=== PATIENT | female | born 1960 | race Caucasian/White ===

== ENCOUNTER 2024-01-11 17:52 | Emergency (ER) | payer OTHER, SELFPAY ==
[2024-01-11] VITALS (7 sets, daily range): BP systolic 120–145; BP diastolic 61–82; PULSE 69–79; RESP 15–18; TEMP 36.6; O2SAT 93–100; BMI 27.4
--- NOTE | 2024-01-11 18:18 | EKG_ITS ---
[address] [address] Test Date: 2024-01-11 Pat Name: Emmy Cortes Department: [facility] Room: Gender: Female [employer] As[employer]er: [facility] : 1960 Requested By: Order Number: [id number] Reading MD: Tobias Edmonds MD Measurements Intervals [place] Rate: 74 P: 48 SD: 122 QRS: 52 QRSD: 76 T: 32 QT: 390 QTc: 432 Interpretive Statements Normal sinus rhythm Electronically Signed On 01-12-2024 8:53:55 PDT by Tobias Edmonds MD
[2024-01-11 18:31] LABS: Add Manual Diff / Slide Review NO; Basophils Absolute Auto 100 /uL (0-100); Eosinophils Absolute Auto 200 /uL (0-450); Eosinophils Percent Auto 1.3 % (2-4); Hemoglobin 13.9 g/dL (12.0-16.0); Lymphocytes Absolute Auto 2500 /uL (1100-4500); Lymphocytes Percent Auto 18.8 % (25-40); Mean Corpuscular HGB Conc 33.1 % (30-36); Mean Corpuscular Hemoglobin 29.6 PG (26-34); Mean Corpuscular Volume 89.5 fL (80-100); Monocytes Absolute Auto 1200 /uL (0-900); Monocytes Percent Auto 9.4 % (3-14); Neutrophils Absolute Auto 9100 /uL (1500-7000); Neutrophils Percent Auto 69.5 % (50-75); Platelet Count 372 X10^3/uL (150-400); Red Blood Cell Count 4.69 X10^6/uL (4.0-5.2); Red Cell Distribution Width 14.9 % (11.6-14.8)
[2024-01-11 18:38] LABS: Alanine Aminotransferase 24 IU/L (<35); Albumin 4.8 g/dL (3.5-5.0); Albumin Globulin Ratio 1.5 (1.0-2.8); Alkaline Phosphatase 85 U/L (38-126); Aspartate Aminotransferase 32 IU/L (14-36); BUN Creatinine Ratio 19.3 (6-22); Bilirubin Total 0.8 mg/dL (0.2-1.3); Blood Urea Nitrogen 17 mg/dL (7-17); Carbon Dioxide 27 mmol/L (22-32); Chloride 104 mmol/L (98-107); Estimated Glomerular Filt Rate > 60 mL/min (>60); Globulin 3.2 g/dL (1.7-4.1); Glucose 89 mg/dL (80-110); HEMOLYSIS < 15 (0-50); Lipase 102 U/L (23-300); Sodium 137 mmol/L (137-145)
[2024-01-11] MEDS: KETOROLAC 30 MG/ML VIAL 15 MG IV (20:44)
--- NOTE | 2024-01-11 21:03 | ED.ABDPAIN ---
HPI - Abdominal Pain General Chief Complaint: Abdominal Pain Stated Complaint: lower abd pain Time Seen by Provider: 01/11/24 20:40 Source: patient, family, RN notes reviewed and old records reviewed Mode of arrival: Ambulatory Limitations: no limitations History of Present Illness HPI narrative: 63-year-old female history of GERD and prior hysterectomy in 2018 who presents with complaint of lower abdominal/pelvic pain started in the last 12 hours. Patient states she went to sleep last night without any issues woke up this morning describing sort of suprapubic discomfort little bit into bilateral back as the day has progressed. No fevers, no nausea or vomiting no chest pain or shortness of breath. No syncope. No issues with bowel movements. No black or bloody stool no diarrhea constipation. No dysuria urgency or frequency. No vaginal bleeding or discharge. Patient states only medications are pantoprazole and daily vitamins. States she had a hysterectomy in 2018. Is allergic to Bactrim. No tobacco, occasional alcohol, no recreational drugs. She is accompanied by her . Related Data Home Medications Medication Instructions Recorded Confirmed [AIRBORNE] ##0 01/30/13 ibuprofen 200 mg tablet (Advil) 200 mg PO PRN ##0 01/30/13 Previous Rx's Medication Instructions Recorded amoxicillin 875 mg-potassium 1 tab PO BID #20 tabs 01/11/24 clavulanate 125 mg tablet Allergies Allergy/AdvReac Type Severity Reaction Status Date / Time sulfamethoxazole Allergy Verified 01/11/24 18:06 [From Bactrim] trimethoprim [From Bactrim] Allergy Verified 01/11/24 18:06 Review of Systems Review of Systems ROS Unobtainable: All systems reviewed & are unremarkable except as noted in HPI and below Patient History Social History Smoking Status: Unknown if ever smoked Smoking Status: Unknown if ever smoked alcohol intake frequency: holidays/special occasions only Substance Use Type: does not use Exam Narrative Exam Narrative: GENERAL: Alert and oriented x three, female in mild distress HEENT: Head normocephalic, atraumatic, EOMI, pupils reactive, face symmetric, moist mucous membranes NECK: Supple, full range of motion CARDIOVASCULAR: Regular rate and rhythm without murmurs, rubs or gallops. RESPIRATORY: Breath sounds equal bilaterally, no wheezes rales or rhonchi. ABDOMEN: Soft, generalized lower abdominal tenderness, left slightly greater than right Normoactive bowel sounds all 4 quadrants. No guarding or rebound, rigidity, no mass : Mild right CVA tenderness, no left CVA tenderness. EXTREMITIES: Normal range of motion, no clubbing or edema. Neurovascularly intact NEUROLOGICAL: Cranial nerves II through XII grossly intact. Moving all extremities SKIN: Warm, dry, no petechiae, no rashes or lesions. Initial Vital Signs Initial Vital Signs: Vital Signs Temperature 97.9 F 01/11/24 18:06 Pulse Rate 79 01/11/24 18:06 Respiratory Rate 15 01/11/24 18:06 Blood Pressure 131/82 01/11/24 18:06 Pulse Oximetry 100 01/11/24 18:06 Oxygen Delivery Method Room Air 01/11/24 18:06 Course Orders Ordered: ED Orders 01/11/24 21:08 CT abdomen pelvis w con Stat Discontinued Medications Hydrocodone Bitart/Acetaminophen (Hydrocodone/Acet 5/325 Prepack) 1 bottle MISC DIRECTED ONE Stop: 01/11/24 22:27 Last Admin: 01/11/24 22:30 Dose: 1 bottle Documented By: JUDIE Amoxicillin/Clavulanate Potassium (Amoxicillin/Clav 875/125 Mg) 1 tab PO NOW ONE Stop: 01/11/24 22:27 Last Admin: 01/11/24 22:30 Dose: 1 tab Documented By: JUDIE Ketorolac Tromethamine (Ketorolac 30 Mg/Ml Vial) 15 mg IV NOW ONE Stop: 01/11/24 20:41 Last Admin: 01/11/24 20:44 Dose: 15 mg Documented By: KAREN Vital Signs Vital signs: Vital Signs - 8 hr 01/11/24 21:30 01/11/24 22:00 01/11/24 22:30 Pulse Rate 73 70 72 Respiratory Rate 18 18 Blood Pressure Pulse Oximetry 93 97 97 Oxygen Delivery Method Room Air 01/11/24 22:30 Pulse Rate Respiratory Rate Blood Pressure 130/65 Pulse Oximetry Oxygen Delivery Method MDM - Abdominal Pain Lab Data 01/11/24 18:15 01/11/24 18:15 Labs: Lab Results 01/11/24 Range/Units 18:15 WBC 13.0 H (4.5-11.0) X10^3/uL RBC 4.69 (4.0-5.2) X10^6/uL Hgb 13.9 (12.0-16.0) g/dL Hct 42.0 (36-46) % MCV 89.5 (80-100) fL MCH 29.6 (26-34) PG MCHC 33.1 (30-36) % RDW 14.9 H (11.6-14.8) % Plt Count 372 (150-400) X10^3/uL Neut % (Auto) 69.5 (50-75) % Lymph % (Auto) 18.8 L (25-40) % Scott % (Auto) 9.4 (3-14) % Eos % (Auto) 1.3 L (2-4) % Baso % (Auto) 1.0 (0-2) % Neut # (Auto) 9100 H (3630-8598) /uL Lymph # (Auto) 2500 (4025-5365) /uL Scott # (Auto) 1200 H (0-900) /uL Eos # (Auto) 200 (0-450) /uL Baso # (Auto) 100 (0-100) /uL Sodium 137 (137-145) mmol/L Potassium 4.0 (3.4-5.1) mmol/L Chloride 104 (98-107) mmol/L Carbon Dioxide 27 (22-32) mmol/L BUN 17 (7-17) mg/dL Creatinine 0.88 (0.52-1.04) mg/dL Estimated GFR > 60 (>60) mL/min BUN/Creatinine Ratio 19.3 (6-22) Glucose 89 (80-110) mg/dL Calcium 9.0 (8.4-10.2) mg/dL Total Bilirubin 0.8 (0.2-1.3) mg/dL AST 32 (14-36) IU/L ALT 24 (<35) IU/L Alkaline Phosphatase 85 (38-126) U/L Total Protein 8.0 (6.3-8.2) g/dL Albumin 4.8 (3.5-5.0) g/dL Globulin 3.2 (1.7-4.1) g/dL Albumin/Globulin Ratio 1.5 (1.0-2.8) Lipase 102 (23-300) U/L Point of care testing: Urine Dip Bedside Urine Glucose Negative Bedside Urine Bilirubin - Negative Bedside Urine Ketone +/- 5 Urine Specific Jackson 1.015 Bedside Urine Occult Blood - Negative Bedside Urine pH 6 Bedside Urine Protein - Negative Bedside Urine Urobilinogen - Negative Bedside Urine Nitrite - Negative Bedside Urine Leukocytes - Negative Esterase Imaging Data CT scan - abdomen/pelvis: Radiologist's Impression: Emmy Cortes??63??F??1960 ? Allergy/Adv: sulfamethoxazole, trimethoprim (More??) Close Abdomen/Pelvis CT (Signed) Porsche Malloy - 01/11/24 Launch?[address] [address] [address] Scan Report Signed Patient: Emmy Cortes MR#: [id number] : 1960 Acct:[id number] Age/Sex: 63 / F Date of Service: 01/11/24 Loc: ED Accession Number: [id number] Procedure: CT abdomen pelvis w con Ordering Provider: Lea Gramajo D.O. PROCEDURE: CT ABDOMEN PELVIS W CON INDICATIONS: lower pelvic pain L>R, mild r flank, hx hysterctomy TECHNIQUE: After the administration of intravenous contrast, axial sections acquired from the lung bases to the pubic symphysis. Coronal and sagittal reformats were performed. For radiation dose reduction, the following was used: automated exposure control, adjustment of mA and/or kV according to patient size. COMPARISON: None. FINDINGS: Image quality: Diagnostic. Lower Chest: No significant findings. ABDOMEN: Liver: No solid mass. Gallbladder: No radiopaque gallstones or wall thickening. Biliary ducts: No biliary dilation. Pancreas: No ductal dilation. Spleen: Size is within normal limits. Adrenal Glands: No adrenal nodules. Kidneys and Ureters: No hydronephrosis. No solid mass. No complex renal cystic lesion which requires follow up. Stomach and Bowel: No small bowel obstruction. Acute diverticulitis adjacent to sigmoid colon diverticulum in the lower pelvis. No free air. No abscess. Peritoneum: No abnormal intraperitoneal fluid. No free air. Ventral Wall: No significant ventral hernia. Abdominal Nodes: No retroperitoneal or mesenteric adenopathy by size criteria. Vessels: Aorta and inferior vena cava are normal in size. PELVIS: Pelvic Organs: Status post hysterectomy. Bladder: No bladder wall thickening, accounting for underdistention. Pelvic Nodes: No enlarged lymph nodes. Miscellaneous: No inguinal hernias are seen. Bones: No aggressive osseous abnormality. Multilevel degenerative changes, worse at L5-S1. No acute vertebral body compression fracture. IMPRESSION: Acute uncomplicated sigmoid colon diverticulitis. Approved by: Porsche Malloy M.D.,Ph.D. on 01/11/2024 at 22:05 ECG Data Attestation: I personally reviewed and interpreted this ECG as follows: Prior ECG tracings: not available for review Interpretation: Sinus rhythm rate of 74 OK 122 QRS is 76 QTC 432, no acute ST changes. MDM Narrative Medical decision making narrative: 63-year-old female with prior history hysterectomy who comes in with complaint of suprapubic pain but also little flank pain on examination. Patient has mildly more tender on the left but hurts both sides and suprapubically. She is some mild right CVA tenderness. CBC shows a white count with the 13, low neutrophils, normal hemoglobin normal platelets. Electrolytes, renal function LFTs are all normal. Point of care urine is negative. EKG shows no acute change. Patient received Toradol. She states pain has improved. CT shows acute uncomplicated sigmoid diverticulitis. Multi degenerative changes worse at L5-S1. Reviewed findings from labs and imaging with patient and family. Patient is started on oral antibiotics with prescription sent. We will give a short course of narcotic pain medication. Discussed return precautions all questions answered. Discharge Plan Departure Patient Disposition: Home Clinical Impression: Diverticulitis Instructions: DI for Diverticulitis Activity Restrictions/Additional Instructions: Follow up for recheck if your symptoms are not starting to significantly improve in the next several days. Your imaging shows sigmoid diverticulitis please take antibiotics until completed. Prescription sent to [facility] You can take Tylenol up to a 1000 mg every 6 hours as needed and/or ibuprofen up to 600 mg every 6 hours as needed for pain. If in adequate you can take [place] 1-2 tablets every 6 hours as needed for pain instead of Tylenol. This medication can make you sleepy do not drive, perform hazardous activities or make any major decisions while taking it. This medication will make you constipated please take a stool softener once to twice daily until stools are soft and regular. Please return for fevers, rapidly worsening pain, persistent vomiting, new black or bloody stools, lightheadedness or passing out or other new or concerning changes. Prescriptions: New amoxicillin-pot clavulanate 875-125 mg tablet 1 tab PO BID Qty: 20 0RF No Action ibuprofen [Advil] 200 MG tablet 200 mg PO PRN Qty: 0 [AIRBORNE] Qty: 0 Stand Alone Forms: Patient Portal/API
--- NOTE | 2024-01-11 21:08 | DI.CT.S_ITS ---
PROCEDURE: CT ABDOMEN PELVIS W CON INDICATIONS: lower pelvic pain L>R, mild r flank, hx hysterctomy TECHNIQUE: After the administration of intravenous contrast, axial sections acquired from the lung bases to the pubic symphysis. Coronal and sagittal reformats were performed. For radiation dose reduction, the following was used: automated exposure control, adjustment of mA and/or kV according to patient size. COMPARISON: None. FINDINGS: Image quality: Diagnostic. Lower Chest: No significant findings. ABDOMEN: Liver: No solid mass. Gallbladder: No radiopaque gallstones or wall thickening. Biliary ducts: No biliary dilation. Pancreas: No ductal dilation. Spleen: Size is within normal limits. Adrenal Glands: No adrenal nodules. Kidneys and Ureters: No hydronephrosis. No solid mass. No complex renal cystic lesion which requires follow up. Stomach and Bowel: No small bowel obstruction. Acute diverticulitis adjacent to sigmoid colon diverticulum in the lower pelvis. No free air. No abscess. Peritoneum: No abnormal intraperitoneal fluid. No free air. Ventral Wall: No significant ventral hernia. Abdominal Nodes: No retroperitoneal or mesenteric adenopathy by size criteria. Vessels: Aorta and inferior vena cava are normal in size. PELVIS: Pelvic Organs: Status post hysterectomy. Bladder: No bladder wall thickening, accounting for underdistention. Pelvic Nodes: No enlarged lymph nodes. Miscellaneous: No inguinal hernias are seen. Bones: No aggressive osseous abnormality. Multilevel degenerative changes, worse at L5-S1. No acute vertebral body compression fracture. IMPRESSION: Acute uncomplicated sigmoid colon diverticulitis. Approved by: Porsche Malloy M.D.,Ph.D. on 01/11/2024 at 22:05
[2024-01-11] MEDS: HYDROCODONE/ACET 5/325 PREPACK 1 BOTTLE MISC (22:30)
[2024-01-11] MEDS: AMOXICILLIN/CLAV 875/125 MG 1 TAB PO (22:30)
== END 2024-01-11 22:40 | disposition home or self-care (01) ==
PROVIDERS: Emergency Medicine; Emergency Provider Emergency Medicine
DX: K57.92 Diverticulitis of intestine, part unspecified, without perforation or abscess without bleeding (principal)
CPT/HCPCS: 36415; 74177; 80053; 81003; 83690; 85025; 93005; 99284; J1885; Q9967

== ENCOUNTER 2024-03-09 17:51 | Emergency (ER) | payer OTHER, SELFPAY ==
[2024-03-09] VITALS (8 sets, daily range): BP systolic 113–136; BP diastolic 72–80; PULSE 59–77; RESP 16–18; TEMP 36.6; O2SAT 94–99; BMI 26.6
--- NOTE | 2024-03-09 18:21 | DI.RAD.S_ITS ---
PROCEDURE: XR WRIST LT MIN 3V INDICATIONS: fall, L wrist pain TECHNIQUE: 3 views of the wrist were acquired. COMPARISON: None. FINDINGS: Bones: No fractures or dislocations. No suspicious bony lesions. Soft tissues: No suspicious soft tissue calcifications. IMPRESSION: No acute bony abnormality. Approved by: Porsche Malloy M.D.,Ph.D. on 03/09/2024 at 20:40
[2024-03-09] MEDS: IBUPROFEN 400 MG TABLET 800 MG PO (18:24)
--- NOTE | 2024-03-09 21:47 | ED.FALL ---
HPI - Fall General Chief Complaint: Fall Stated Complaint: Fall, lft hand injury Time Seen by Provider: 03/09/24 21:47 History of Present Illness HPI Narrative: Patient is a 63-year-old healthy female who presents today with left wrist and hand pain. She fell approximately 24 hours ago minutes had significant pain and swelling since. She says she was walking the dog she had a lesion in the right hand tripped and fell. She may have hit her head but did not lose consciousness. She has no nausea vomiting or neck pain. She has not having any shoulder pain. Significant hand pain and swelling. She has been given ibuprofen prior to my evaluation along with an ice pack and sling. Related Data Home Medications Medication Instructions Recorded Confirmed [AIRBORNE] ##0 01/30/13 ibuprofen 200 mg tablet (Advil) 200 mg PO PRN ##0 01/30/13 Previous Rx's Medication Instructions Recorded amoxicillin 875 mg-potassium 1 tab PO BID #20 tabs 01/11/24 clavulanate 125 mg tablet oxycodone-acetaminophen 5 mg-325 1 tab PO Q6H PRN pain #10 tabs 03/09/24 mg tablet (Percocet) Allergies Allergy/AdvReac Type Severity Reaction Status Date / Time sulfamethoxazole Allergy Verified 01/11/24 18:06 [From Bactrim] trimethoprim [From Bactrim] Allergy Verified 01/11/24 18:06 Patient History Social History Smoking Status: Unknown if ever smoked Smoking Status: Unknown if ever smoked alcohol intake frequency: holidays/special occasions only Substance Use Type: does not use Exam Initial Vital Signs Initial Vital Signs: Vital Signs Temperature 97.8 F 03/09/24 18:16 Pulse Rate 77 03/09/24 18:16 Respiratory Rate 16 03/09/24 18:16 Blood Pressure 126/78 03/09/24 18:16 Pulse Oximetry 97 03/09/24 18:16 Oxygen Delivery Method Room Air 03/09/24 18:16 GENERAL: Alert 63-year-old female CARDIOVASCULAR: peripheral pulses in tact, cap refill <2 sec RESPIRATORY: No respiratory distress, speaks in full sentences without difficulty EXTREMITIES: Normal range of motion, no clubbing or edema. Neurovascularly intact. Significant swelling of left wrist distal radial pulse intact able to move fingers neurovascularly intact NEUROLOGICAL: Cranial nerves II through XII grossly intact. Normal gait and speech. SKIN: Warm, dry, no petechiae, no rashes or lesions. Procedures Orthopedic Splinting/Casting Injury #1: Side: left Upper Extremity Injury Location: wrist and hand Upper Extremity Immobilizer: sling/shoulder immobilizer and ulnar gutter Post splinting neuro exam: intact Post splinting vascular exam: intact Placed by: Nursing Course Orders Ordered: ED Orders 03/09/24 18:21 XR wrist LT min 3V Stat 03/09/24 21:52 XR hand LT min 3V Stat Discontinued Medications Ibuprofen (Ibuprofen 400 Mg Tablet) 800 mg PO NOW ONE Stop: 03/09/24 18:22 Last Admin: 03/09/24 18:24 Dose: 800 mg Documented By: YAYO Oxycodone/Acetaminophen (Oxycodone/Acetaminophen 5/325 Tablet) 1 tab PO NOW ONE Stop: 03/09/24 21:53 Last Admin: 03/09/24 21:58 Dose: 1 tab Documented By: TAMI Oxycodone/Acetaminophen (Oxycodone/Apap 5/325 Prepack) 1 bottle MISC DIRECTED ONE Stop: 03/09/24 23:01 Last Admin: 03/09/24 23:07 Dose: 1 bottle Documented By: TAMI Vital Signs Vital signs: Vital Signs - 8 hr 03/09/24 20:59 03/09/24 20:59 03/09/24 21:00 Pulse Rate 59 L Respiratory Rate Blood Pressure 131/74 136/72 Pulse Oximetry 98 03/09/24 21:00 03/09/24 21:30 03/09/24 21:30 Pulse Rate 63 67 Respiratory Rate 18 Blood Pressure 128/79 Pulse Oximetry 98 94 03/09/24 21:58 03/09/24 22:00 03/09/24 22:04 Pulse Rate 59 L 59 L Respiratory Rate Blood Pressure 133/80 Pulse Oximetry 99 98 03/09/24 22:30 03/09/24 22:30 Pulse Rate 66 Respiratory Rate 18 Blood Pressure 113/72 Pulse Oximetry 97 MDM - Fall Imaging Data Extremity x-ray #1: Radiologist's Impression: PROCEDURE: XR WRIST LT MIN 3V INDICATIONS: fall, L wrist pain TECHNIQUE: 3 views of the wrist were acquired. COMPARISON: None. FINDINGS: Bones: No fractures or dislocations. No suspicious bony lesions. Soft tissues: No suspicious soft tissue calcifications. IMPRESSION: No acute bony abnormality. Approved by: Porsche Malloy M.D.,Ph.D. on 03/09/2024 at 20:40 Extremity x-ray #2: Radiologist's Impression: PROCEDURE: XR HAND LT MIN 3V INDICATIONS: pain swelling TECHNIQUE: Three views of the hand(s) acquired. COMPARISON: None. FINDINGS: Bones: No visible fractures or dislocations. There is subtle irregularity along the medial aspect of the 4th metacarpal head without discrete cortical break seen. Prominent juxta-articular spurring at the 1st IP joint and to lesser extent other DIP joints. Carpal bones are normally aligned. No suspicious bony lesions. Soft tissues: No suspicious soft tissue calcifications. No soft tissue gas or radiodense foreign bodies. IMPRESSION: Questionable irregularity at the 4th metacarpal head may be a nondisplaced fracture and correlation with point tenderness is recommended. No other fractures are identified. There is a background of mild osteoarthritic change. Dictated by: Stephanie Alexandra M.D. on 03/09/2024 at 22:26 MDM Narrative Medical decision making narrative: Patient is 63-year-old female who presents today with left wrist and hand pain after fall yesterday. She does look quite a bit of swelling but neurovascularly she is intact. X-ray of the wrist does not feel and fracture however she is extremely tender over the hand. Hand x-ray does show questionable 4th metacarpal Fracture. Patient is splinted in an ulnar gutter instructed to elevate ice as often as possible. She was given Percocet here for further pain control. Along with a sling. Discharge Plan Departure Patient Disposition: Home Clinical Impression: Closed fracture of 4th metacarpal Qualifiers: Encounter type: initial encounter Metacarpal location: other portion of metacarpal Laterality: left Instructions: Boxer's Fracture Activity Restrictions/Additional Instructions: *You have been diagnosed with 4th metacarpal fracture *What to do: At this time keep arm in splint at all times. If you need to bathe please cover it with Plastic. Elevate and ice as often as possible. *Continue to take medications as directed Percocet 1-2 tablets every 6 hours if needed for severe pain Motrin 600 mg every 6 hours if needed for [id number]-qpeuyxad pain *Follow up with your primary care provider in 2-3 days or call [phone] Please call orthopedics [facility] tomorrow to schedule follow-up appoint *Return to ER if you should have increasing pain numbness tingling weakness or any new, worsening or concerning symptoms CONTROLLED SUBSTANCE DISCHARGE (Narcotoic/benzodiazepine/Flexeril/Phenergan) 1. You have been prescribed narcotic medications, it does have acetaminophen/Tylenol/paracetamol in it, DO NOT TAKE MORE THAN 4,00mg in 24 hours of Tylenol. TRAMADOL DOES NOT CONTAIN TYLENOL 2. Please understand that we cannot provide further refills of narcotics, benzodiazepines or controlled substances through the ED and her pain management will need to be through your provider. 3. While on these medications you cannot drive or operate heavy machinery. 4. You cannot sign legal documents or perform any duties such as this. 5. As long as you're taking opiate pain medications he should also be taking a stool softener such as Colace, Dulcolax, MiraLAX or prune juice, to help avoid constipation. Prescriptions: New oxycodone-acetaminophen [Percocet] 5-325 mg tablet 1 tab PO Q6H PRN (Reason: pain) Qty: 10 0RF No Action ibuprofen [Advil] 200 MG tablet 200 mg PO PRN Qty: 0 [AIRBORNE] Qty: 0 amoxicillin-pot clavulanate 875-125 mg tablet 1 tab PO BID Qty: 20 0RF Referrals: [facility] [Provider Group] Miscellaneous,MD Georges [Primary Care Provider] - Stand Alone Forms: Patient Portal/API
--- NOTE | 2024-03-09 21:52 | DI.RAD.S_ITS ---
PROCEDURE: XR HAND LT MIN 3V INDICATIONS: pain swelling TECHNIQUE: Three views of the hand(s) acquired. COMPARISON: None. FINDINGS: Bones: No visible fractures or dislocations. There is subtle irregularity along the medial aspect of the 4th metacarpal head without discrete cortical break seen. Prominent juxta-articular spurring at the 1st IP joint and to lesser extent other DIP joints. Carpal bones are normally aligned. No suspicious bony lesions. Soft tissues: No suspicious soft tissue calcifications. No soft tissue gas or radiodense foreign bodies. IMPRESSION: Questionable irregularity at the 4th metacarpal head may be a nondisplaced fracture and correlation with point tenderness is recommended. No other fractures are identified. There is a background of mild osteoarthritic change. Dictated by: Stephanie Alexandra M.D. on 03/09/2024 at 22:26 Approved by: Stephanie Alexandra M.D. on 03/09/2024 at 22:28
[2024-03-09] MEDS: OXYCODONE/ACETAMINOPHEN 5/325 TABLET 1 TAB PO (21:58)
[2024-03-09] MEDS: OXYCODONE/APAP 5/325 PREPACK 1 BOTTLE MISC (23:07)
== END 2024-03-09 23:15 | disposition home or self-care (01) ==
PROVIDERS: Emergency Provider Emergency Medicine
DX: S62.305A Unspecified fracture of fourth metacarpal bone, left hand, initial encounter for closed fracture (principal); W01.0XXA Fall on same level from slipping, tripping and stumbling without subsequent striking against object, initial encounter
CPT/HCPCS: 73110; 73130; 99283